=== PATIENT | female | born 1945 | race Caucasian/White ===

== ENCOUNTER → 2019-08-12 | Outpatient (CLI) | payer MEDICARE, BC ==
--- NOTE | 2019-08-12 15:55 | RAD ---
US PELVIS W/TV History: Pelvic pain Comparison: None. Findings: Multiple transabdominal sonographic images of the pelvis are submitted. Pelvic structures are not well seen. Transvaginal ultrasound: Multiple transvaginal sonographic images of the pelvis are submitted. Exam is limited due to patient's body habitus. There is some heterogeneity of the uterine parenchyma. There is a somewhat heterogeneous, hypoechoic mass of the posterior uterus in the myometrium about 1.6 x 1.2 x 2 cm, internal vascularity on color Doppler imaging. There is small cyst of the posterior uterus in the myometrium up to 0.6 x 0.4 x 0.5 cm. Uterus is estimated about 5 x 3.3 x 4.2 cm in size, endometrium not well visualized. Neither ovary could be visualized. No significant free fluid is demonstrated. Impression: 1. Exam is limited due to the patient's body habitus. Neither ovary could be visualized. There is nonspecific heterogeneity of the uterus, endometrium not seen for accurate evaluation. There is more discrete, posterior uterine mass most likely a fibroid. There is a separate small cyst in the posterior uterine myometrium. Electronically signed by: Rolo Salmeron MD (08/12/2019 3:52 PM) [id number]
--- NOTE | 2019-08-13 14:51 | RAD ---
History: Routine Screening. Technique: Bilateral digital mammographic routine views were obtained with 2-D and 3-D technique including use of CAD - computer aided detection. Comparison: 04/08/2018. Findings: Breast Tissue Density A : The breast tissue is predominately fatty replaced. There are no suspicious masses, microcalcifications or areas of architectural distortion. Impression: Negative mammogram. BI-RADS Category 1: Negative. Normal interval followup. . A mammogram does not have 100% sensitivity and therefore a negative imaging study should not delay further work up of a suspicious abnormality. The patient will receive a letter with the results in the mail. Patient information is entered into the reminder system with a target due date for the next screening mammogram. The patient will receive a reminder. "Our facility is accredited by the [employer] Mammography [employer]." BI-RADS 1 -- negative findings (within normal)
== END | disposition home or self-care (01) ==
LOC: US 12:25
PROVIDERS: ATTEND Obstetrics & Gynecology
DX: Z12.31 Encounter for screening mammogram for malignant neoplasm of breast (principal); Z01.419 Encounter for gynecological examination (general) (routine) without abnormal findings; N85.8 Other specified noninflammatory disorders of uterus
CPT/HCPCS: 76830; 76856; 77067

== ENCOUNTER → 2020-08-23 | Outpatient (CLI) | payer MEDICARE, BC ==
--- NOTE | 2020-08-30 09:06 | RAD ---
DATE: 08/23/2020 3:44 PM EXAM: DIGITAL SCREEN BILAT W/CAD HISTORY: Screening COMPARISON: 08/12/2019 Bilateral full field craniocaudal and mediolateral oblique images were obtained using digital technique. This study was interpreted with the benefit of Computerized Aided Detection (CAD). FINDINGS: Breast Density: FATTY The Breast Parenchyma is primarily fatty replaced. Breast parenchyma level density A. No suspicious masses, microcalcifications or architectural distortion is present to suggest malignancy in either breast. The visualized axillae are unremarkable. IMPRESSION: No mammographic evidence of malignancy. BI-RADS CATEGORY: 1 NEGATIVE RECOMMENDED FOLLOW-UP: 12M 12 MONTH FOLLOW-UP Annual screening mammography is recommended, unless clinically indicated sooner based on symptoms or change in physical exam. PQRS compliance statement: Patient information was entered into a reminder system with a target due date for the next mammogram. Mammography is a sensitive method for finding small breast cancers, but it does not detect them all and is not a substitute for careful clinical examination. A negative mammogram does not negate a clinically suspicious finding and should not result in delay in biopsying a clinically suspicious abnormality. "Our facility is accredited by the [employer] Mammography Program."
== END ==
LOC: MAMMO 14:48
PROVIDERS: ATTEND Specialist
DX: Z12.31 Encounter for screening mammogram for malignant neoplasm of breast (principal)
CPT/HCPCS: 77067

== ENCOUNTER → 2020-12-21 | Day surgery (SDC) | payer MEDICARE, BC ==
[~2020-12-21] MED LIST: ALBU2.5V14 NEB; AMLO-186 PO; ASPI-630 PO; BUPR100T7 PO; CARV3.12 PO; COLE625T12 PO; CYCL-331 PO; DICL20GE TP; DULO60CA6 PO; FLUT1DIS3 IH; FURO-69 PO; GABA-586 PO; HYDR-2767 PO; LEVO125T PO; MAGN400O7 PO; METF500T16 PO; METO2.5T PO; PANT40TA3 PO; SERT100T PO; SIMV20TA PO; SUCR1TAB35 PO; TIOT18CA IH; TOLT2CAP PO
[2020-12-21 12:51] VITALS: BP 158/99
== END | disposition home or self-care (01) ==
LOC: SURG 12:36
PROVIDERS: ATTEND Anesthesiology
DX: M54.5 Low back pain (principal); E78.5 Hyperlipidemia, unspecified; J44.9 Chronic obstructive pulmonary disease, unspecified; I10 Essential (primary) hypertension; M06.9 Rheumatoid arthritis, unspecified; E11.9 Type 2 diabetes mellitus without complications; G47.30 Sleep apnea, unspecified; M47.816 Spondylosis without myelopathy or radiculopathy, lumbar region; M47.812 Spondylosis without myelopathy or radiculopathy, cervical region; M79.10 Myalgia, unspecified site; E66.01 Morbid (severe) obesity due to excess calories; Z90.49 Acquired absence of other specified parts of digestive tract; Z96.651 Presence of right artificial knee joint; Z98.890 Other specified postprocedural states; Z79.899 Other long term (current) drug therapy; Z79.82 Long term (current) use of aspirin
CPT/HCPCS: 99204; G0463

== ENCOUNTER 2021-01-21 14:16 | Emergency (ER) | payer MEDICARE, BC ==
[~2021-01-21] VITALS: Ht 162.6 cm; Wt 144.5 kg
[2021-01-21] MEDS ORDERED: IV NORMAL SALINE 1,000ML 1,000 ML IV ONE (14:45)
[2021-01-21] MEDS ORDERED: MORPHINE SULFATE 4 MG/ML DISP.SYRIN. IV ONE (14:45)
[2021-01-21] MEDS ORDERED: ONDANSETRON PF 4 MG/2 ML VIAL. IVP ONE (14:45)
[2021-01-21] MEDS ORDERED: IOHEXOL 300 MG/ML 75 ML VIAL. IV ONE (14:45)
--- NOTE | 2021-01-21 14:49 | PHYS DOC ---
Past History Additional Past Medical Histor: gastroparesis Past Surgical History: Appendectomy, Cholecystectomy, Other Additional Past Surgical Histo: T&A; abd hernia with mesh; total knee; ankle/foot fx repair w/ plates Alcohol Use: None General Adult EDM: Chief Complaint: GI PROBLEM HPI: HPI: 75-year-old female presents with sudden onset epigastric pain. The patient was cleaning her house earlier today when she started to have the discomfort. It has increased significantly and now she rates it a 9 out of 10. It is a cramping sensation in the epigastrium and right upper quadrant. Patient had some kind of a botched gallbladder surgery decades ago. She was supposed to have an ERCP over a year ago but never got to go because of Covid. Patient had vomiting at night 2 days ago but none today. She has had a lot of flatulence but no diarrhea. On arrival she has a temperature 100.4. Review of Systems: Review of Systems: Constitutional: Denies fever or chills Eyes: Denies change in visual acuity HENT: Denies nasal congestion or sore throat Respiratory: Denies cough or shortness of breath Cardiovascular: Denies chest pain or edema GI: Epigastric abdominal pain. Denies nausea, vomiting, bloody stools or diarrhea : Denies dysuria Musculoskeletal: Denies back pain or joint pain Integument: Denies rash Neurologic: Denies headache, focal weakness or sensory changes Endocrine: Denies polyuria or polydipsia Lymphatic: Denies swollen glands Psychiatric: Denies depression or anxiety Current Medications: Current Meds: Current Medications Medications (Trade) Dose Ordered Sig/Johan Start Time Stop Time Status Last Admin Dose Admin Iohexol (Omnipaque 300 Mg/ml) 75 ml 1X ONCE 01/21/21 14:45 01/21/21 14:46 UNV Morphine Sulfate (Morphine 4mg Syringe) 4 mg 1X ONCE 01/21/21 14:45 01/21/21 14:46 UNV Ondansetron HCl (Zofran) 4 mg 1X ONCE 01/21/21 14:45 01/21/21 14:46 UNV Sodium Chloride 1,000 ml @ 1,000 mls/hr 1X ONCE 01/21/21 14:45 01/21/21 15:44 UNV Allergies: Allergies: Allergies Coded Allergies Type Severity Reaction Last Updated Verified [id number] Reductase Inhibitor Allergy Unknown 12/21/20 Yes Sulfa (Sulfonamide Antibiotics) Allergy Unknown 12/21/20 Yes adhesive tape Allergy Unknown 12/21/20 Yes allopurinol Allergy Unknown 12/21/20 Yes atorvastatin Allergy Unknown 12/21/20 Yes epinephrine Allergy Unknown 01/21/21 Yes ezetimibe Allergy Unknown 01/21/21 Yes metoclopramide Allergy Unknown 01/21/21 Yes rosuvastatin Allergy Unknown 01/21/21 Yes simvastatin Allergy Unknown 01/21/21 Yes Physical Exam: PE: Constitutional: Well developed, well nourished, morbidly obese, mild acute distress, non-toxic appearance. [] HENT: Normocephalic, atraumatic, bilateral external ears normal, oropharynx moist, no oral exudates, nose normal. [] Eyes: PERRLA, EOMI, conjunctiva normal, no discharge. [] Neck: Normal range of motion, no tenderness, supple, no stridor. [] Cardiovascular: Heart rate regular rhythm, no murmur [] Lungs & Thorax: Bilateral breath sounds clear to auscultation [] Abdomen: Bowel sounds normal, soft, epigastric and right upper quadrant tenderness, no masses, no pulsatile masses. [] Skin: Warm, dry, no erythema, no rash. [] Back: No tenderness, no CVA tenderness. [] Extremities: No tenderness, no cyanosis, no clubbing, ROM intact, no edema. [] Neurologic: Alert and oriented X 3, normal motor function, normal sensory function, no focal deficits noted. [] Psychologic: Affect normal, judgement normal, mood normal. [] Current Patient Data: Vital Signs: Vital Signs Date Time Temp Pulse Resp B/P (MAP) Pulse Ox O2 Delivery O2 Flow Rate FiO2 01/21/21 14:24 100.4 90 20 131/56 98 Nasal Cannula 3.0 EKG: EKG: Sinus rhythm, rate 81, normal axis, no ST elevation or depression. [] Radiology/Procedures: Radiology/Procedures: [] Impressions: Exam: CT abdomen and pelvis with contrast INDICATION: Abdominal pain TECHNIQUE: Sequential axial images through the abdomen and pelvis obtained following the administration of 75 mL of Isovue-370 IV contrast. Sagittal and coronal reformatted images were reconstructed from the axial data and reviewed. Exposure: One or more of the following in the visualized dose reduction techniques were utilized for this examination: 1. Automated exposure control 2. Adjustment of the MA and/or KV according to patient size 3. Use of iterative of reconstructive technique Comparisons: None FINDINGS: Heart size is normal. No pericardial effusion. Linear bandlike opacity at lung bases. No pleural effusion. There is mild intrahepatic biliary ductal dilatation. Spleen, pancreas and adrenals are unremarkable. Gallbladder surgically absent. No perinephric inflammation or hydronephrosis. No renal or ureteral calculi are identified. Bladder is partially distended and appears thin-walled. Small amount of air noted within the bladder. Uterus is not enlarged. No abnormal adnexal mass. Large and small bowel are unremarkable. Appendix is nonidentified. No free intra-abdominal air or fluid. No obstruction. Abdominal aorta has a normal course and caliber. Abdominal vasculature is patent. No enlarged intra-abdominal lymph nodes are identified. No suspicious osseous lesions or acute fractures. IMPRESSION: 1. Mild intrahepatic biliary ductal dilatation. Correlate with LFTs and for recent ERCP. 2. Small focus of air noted within the bladder. Correlate for recent instrumentation. Urinalysis for infection. Electronically signed by: Teja Webb MD (01/21/2021 4:41 PM) [facility] DICTATED AND SIGNED BY: TEJA WEBB MD DATE: 01/21/21 1634 CC: RODRIGO CARRILLO DO; MEHUL CALDERON MD ~MTH0 0 XR CHEST 1V INDICATION: fever . COMPARISON STUDY: None. FINDINGS: Lungs: Normal lung volume. Left basilar linear opacity. The tracheobronchial tree and hilar structures are normal. Pleura: No pleural effusion or pneumothorax. Heart and Mediastinum: The cardiomediastinal silhouette is normal. The great vessels of the thorax are normal. IMPRESSION: Left basilar linear opacities, probably subsegmental atelectasis. Electronically signed by: Zaira Toledo MD (01/21/2021 4:45 PM) [facility] DICTATED AND SIGNED BY: ZAIRA TOLEDO MD DATE: 01/21/21 1644 CC: RODRIGO CARRILLO DO; MEHUL CALDERON MD ~MTH0 0 Heart Score: C/O Chest Pain: No Risk Factors: Risk Factors: DM, Current or recent (<one month) smoker, HTN, HLP, family history of CAD, obesity. Risk Scores: Score 0 - 3: 2.5% MACE over next 6 weeks - Discharge Home Score 4 - 6: 20.3% MACE over next 6 weeks - Admit for Clinical Observation Score 7 - 10: 72.7% MACE over next 6 weeks - Early Invasive Strategies Course & Med Decision Making: Course & Med Decision Making Pertinent Labs and Imaging studies reviewed. (See chart for details) The patient has a white count 1.7. With a left shift. Her ANC is normal. Her liver enzymes are mildly elevated. Bilirubin is 2.1. Patient was in quite a b it of pain on arrival. I gave her 4 mg of morphine and a milligram of Dilaudid. This is in addition to the 100 mcg of fentanyl by EMS. Chest x-ray showed linear opacities likely atelectasis. See official report for more details. The CT of the abdomen and pelvis shows dilated intrahepatic biliary duct system. Gallbladder is absent. See official report for more details. As reviewed the patient's information I realize she was borderline fever on arrival and with a suppressed white count and concerned about sepsis. Source could be cholangitis. The x-ray was not suggestive of pneumonia. Her urinalysis shows small leukocyte esterase but few bacteria. On reexamination she is now more obviously wheezing I will treat her with Decadron, albuterol inhaler and perform a CTA of the chest. The patient will also be tested for COVID-19. The patient and her family would prefer that she be transferred to [facility] for admission. We will start that process. The patient needed additional oxygen and her respiratory rate increased. ABG showed her to be acidotic with CO2 retention. We will place her on BiPAP. Transfer is pending. I am signing the patient out to Dr. Shay at 1800. [] Opal Disclaimer: Opal Disclaimer: This electronic medical record was generated, in whole or in part, using a voice recognition dictation system. Departure Departure: Impression: Primary Impression: Sepsis Qualified Codes: A41.9 - Sepsis, unspecified organism Additional Impressions: Elevated liver enzymes Decreased white blood cell count COPD exacerbation Disposition: 02 SHORT TERM HOSPITAL Condition: GUARDED Referrals: MEHUL CALDERON MD (PCP) Sepsis Assessment: Date and Time of Assessment Date: Jan 21, 2021 Time: 16:32 Vital Signs Vital Signs Vital Signs Date Time Temp Pulse Resp B/P (MAP) Pulse Ox O2 Delivery O2 Flow Rate FiO2 01/21/21 16:30 84 20 155/76 (102) 88 Nasal Cannula 3.0 01/21/21 14:24 100.4 Respirations Respiratory Effort: Normal, Shortness of air Respiratory Pattern: Tachypnea Cardiovascular Pulse Rhythm: Regular HEART: Nml rate, reg. rhythm Lung Sounds Breath Sounds: Wheezes Capillary Refill Capillary Refill: Rt Hand < 3 seconds Peripheral Pulse Pulse Location: Monitor Pulse Strength: Normal (2+) Pulse Assessment Method: Monitor Integumentary Skin: Warm Skin Moisture: Dry Skin Turgor: Normal Skin Color: no erythema Fingernail Color: WNL Sepsis Assessment: Date and Time of Assessment Date: Jan 21, 2021 Time: 17:33 Vital Signs Vital Signs Vital Signs Date Time Temp Pulse Resp B/P (MAP) Pulse Ox O2 Delivery O2 Flow Rate FiO2 01/21/21 16:30 84 20 155/76 (102) 88 Nasal Cannula 3.0 01/21/21 14:24 100.4 Respirations Respiratory Effort: Normal Respiratory Pattern: Tachypnea Cardiovascular Pulse Rhythm: Regular HEART: Nml rate, reg. rhythm Lung Sounds Breath Sounds: Wheezes Capillary Refill Capillary Refill: Rt Hand < 3 seconds Peripheral Pulse Pulse Location: Monitor Pulse Strength: Normal (2+) Pulse Assessment Method: Monitor Integumentary Skin: Warm Skin Moisture: Dry Skin Turgor: Normal Skin Color: warm Fingernail Color: WNL RODRIGO CARRILLO DO Jan 21, 2021 14:49
[2021-01-21] MEDS ORDERED: CONTRAST GIVEN. MC PRN ×2 (15:00→17:45)
[2021-01-21] MEDS ORDERED: HYDROmorphone PF 1 MG/ML DISP.SYRIN IVP ONE (15:30)
[2021-01-21 15:34] LABS: BASO % 1 % (0-3); EOS % 1 % (0-3); HEMATOCRIT 39.1 % (36.0-47.0); HEMOGLOBIN 12.9 g/dL (12.0-15.5); LYMPH # 0.1 x10^3/uL (1.0-4.8); LYMPH % 5 % (24-48); MEAN CORPUSCULAR HEMOGLOBIN 31 pg (25-35); MEAN CORPUSCULAR HGB CONC 33 g/dL (31-37); MEAN CORPUSCULAR VOLUME 95 fL (79-100); MONO % 1 % (0-9); NEUT # 1.6 x10^3uL (1.8-7.7); NEUT % 93 % (31-73); PLATELET COUNT 141 x10^3/uL (140-400); RED CELL DISTRIBUTION WIDTH 14.9 % (11.5-14.5)
[2021-01-21 15:40] LABS: ALBUMIN 3.7 g/dL (3.4-5.0); CALCIUM 8.6 mg/dL (8.5-10.1); CREATININE 0.9 mg/dL (0.6-1.0); GFR 61.2; POTASSIUM 4.1 mmol/L (3.5-5.1); TOTAL BILIRUBIN 2.1 mg/dL (0.2-1.0); TOTAL PROTEIN 7.4 g/dL (6.4-8.2)
--- NOTE | 2021-01-21 15:57 | EKG ---
[address] [address] Test Date: 2021-01-21 Test Time: 14:52:38 Pat Name: AKILA WING Department: Room: Gender: F Casino Host: ALTON : 1945 Requested By: RODRIGO CARRILLO Order Number: [id number] Reading MD: Measurements Intervals [place] Rate: 81 P: -26 VT: 146 QRS: 22 QRSD: 88 T: 39 QT: 338 QTc: 398 Interpretive Statements SINUS RHYTHM OTHERWISE NORMAL ECG RI6.02 No previous ECG available for comparison
[2021-01-21 16:07] LABS: BACTERIA,URINE FEW /HPF (0-FEW); BILIRUBIN,URINE NEG (NEG); CLARITY,URINE CLOUDY; COLOR,URINE YELLOW; GLUCOSE,URINE NEG (NEG); NITRITE,URINE NEG (NEG); RBC,URINE RARE /HPF (0-2); SQUAMOUS EPITHELIAL CELL,UR OCC /LPF; UROBILINOGEN,URINE 0.2 mg/dL (0.2 mg/dL)
[2021-01-21 16:32] LABS: % BANDS 42 % (0-9); % BASOS 0 % (0-3); % EOS 0 % (0-5); % LYMPHS 8 % (24-48); % METAS 4 % (0-0); % MONOS 0 % (0-10); % MYELOS 0 % (0-0); % PROS 1 % (0-0); % SEGS 44 % (35-66)
[2021-01-21 16:33] LABS: PLT ESTIMATE DECREASED (ADEQUATE); STOMATOCYTES FEW
--- NOTE | 2021-01-21 16:43 | RAD ---
Exam: CT abdomen and pelvis with contrast INDICATION: Abdominal pain TECHNIQUE: Sequential axial images through the abdomen and pelvis obtained following the administrati on of 75 mL of Isovue-370 IV contrast. Sagittal and coronal reformatted images were reconstructed fro m the axial data and reviewed. Exposure: One or more of the following in the visualized dose reduction techniques were utilized for this examination: 1. Automated exposure control 2. Adjustment of the MA and/or KV according to patient size 3. Use of iterative of reconstructive technique Comparisons: None FINDINGS: Heart size is normal. No pericardial effusion. Linear bandlike opacity at lung bases. No pleural effu rafiq. There is mild intrahepatic biliary ductal dilatation. Spleen, pancreas and adrenals are unremarkable. Gallbladder surgically absent. No perinephric inflammation or hydronephrosis. No renal or ureteral calculi are identified. Bladder is partially distended and appears thin-walled. Small amount of air noted within the bladder. Uterus is not enlarged. No abnormal adnexal mass. Large and small bowel are unremarkable. Appendix is nonidentified. No free intra-abdominal air or flu id. No obstruction. Abdominal aorta has a normal course and caliber. Abdominal vasculature is patent. No enlarged intra-abdominal lymph nodes are identified. No suspicious osseous lesions or acute fractures. IMPRESSION: 1. Mild intrahepatic biliary ductal dilatation. Correlate with LFTs and for recent ERCP. 2. Small focus of air noted within the bladder. Correlate for recent instrumentation. Urinalysis for infection. Electronically signed by: Teja Hancock MD (01/21/2021 4:41 PM) [facility]
--- NOTE | 2021-01-21 16:48 | RAD ---
XR CHEST 1V INDICATION: fever . COMPARISON STUDY: None. FINDINGS: Lungs: Normal lung volume. Left basilar linear opacity. The tracheobronchial tree and hilar structure s are normal. Pleura: No pleural effusion or pneumothorax. Heart and Mediastinum: The cardiomediastinal silhouette is normal. The great vessels of the thorax ar e normal. IMPRESSION: Left basilar linear opacities, probably subsegmental atelectasis. Electronically signed by: Rolo Toledo MD (01/21/2021 4:45 PM) [facility]
[2021-01-21] MEDS ORDERED: PIPERACILLIN/TAZOBACTAM 3.375 GM in IV NORMAL SALINE 50ML 50 ML IV ONE (17:15)
[2021-01-21] MEDS ORDERED: ALBUTEROL SULFATE 8GM INHALER. INH ONE (17:15)
[2021-01-21] MEDS ORDERED: DEXAMETHASONE SOD PHOS 10 MG/ML VIAL. IV ONE (17:15)
[2021-01-21 17:36] LABS: BGAS PH 7.21 (7.35-7.45)
[2021-01-21] MEDS ORDERED: IOHEXOL 350 MG/ML 100 ML VIAL. IV ONE (17:45)
[2021-01-21] MEDS ORDERED: IV NORMAL SALINE 1,000ML 1,000 ML IV SCH (17:45)
[2021-01-21] MEDS ORDERED: IV NORMAL SALINE 50ML 50 ML ONE (17:54)
[2021-01-21] MEDS ORDERED: PIPERACILLIN/TAZOBACTAM 3.375 GM VIAL IV ONE (17:54)
[2021-01-21] MEDS ORDERED: VANCOMYCIN 1.5 GM in IV NORMAL SALINE 500ML 500 ML IV ONE (18:30)
[2021-01-21 19:50] VITALS: BP 94/38
[2021-01-21] MEDS ORDERED: VANCOMYCIN 1 GM VIAL. ONE ×2 (20:02)
[2021-01-21] MEDS ORDERED: IV NORMAL SALINE 500ML 500 ML ONE (20:02)
[2021-01-21 20:14] LABS: BGAS PH 7.25 (7.35-7.45)
[2021-01-21] MEDS ORDERED: IV RINGERS SOLUTION,LACTATED 1,000 ML IV ONE (20:15)
[2021-01-21] MEDS ORDERED: NOREPINEPHRINE BITARTRATE 8 MG in IV DEXTROSE 5% 250 ML IV PRN (20:15)
--- NOTE | 2021-01-21 20:36 | RAD ---
XR CHEST 1V Clinical History: Reason: do sitting - central line placement / Spl. Instructions: / History: Technique: AP view of the chest was obtained at 01/21/2021 7:17 PM. Comparison: 4:15 PM. Findings: There has been been interval placement of a right subclavian line with its tip directed downward in t he high SVC. The cardiomediastinal silhouette is normal. The pulmonary vasculature is normal. There is patchy opac ity in the lower lungs. Impression: 1. Right subclavian line is likely adequately positioned. There is no pneumothorax. 2. Mild bilateral pulmonary infiltrates appear worse. Electronically signed by: Vlad Card III, MD (01/21/2021 8:34 PM) [facility]
[2021-01-21] MEDS ORDERED: ACETAMINOPHEN 650 MG SUPP.RECT. PR ONE (22:00)
[2021-01-21] MEDS ORDERED: SODIUM BICARB ADULT 8.4% 50 MEQ/50 ML DISP.SYRIN. IV ONE (22:00)
[2021-01-27 10:52] LABS: WHITE BLOOD COUNT 1.7 x10^3/uL (4.0-11.0)
== END 2021-01-22 00:20 | disposition short-term general hospital (02) ==
LOC: ER 14:16
DX: A41.9 Sepsis, unspecified organism (principal); R65.20 Severe sepsis without septic shock; J96.02 Acute respiratory failure with hypercapnia; J96.01 Acute respiratory failure with hypoxia; R74.8 Abnormal levels of other serum enzymes; D72.819 Decreased white blood cell count, unspecified; J44.1 Chronic obstructive pulmonary disease with (acute) exacerbation; R79.89 Other specified abnormal findings of blood chemistry; E87.2 Acidosis; D64.9 Anemia, unspecified; Z20.822 Contact with and (suspected) exposure to COVID-19; Z90.49 Acquired absence of other specified parts of digestive tract; Z90.89 Acquired absence of other organs; Z88.8 Allergy status to other drugs, medicaments and biological substances; Z88.2 Allergy status to sulfonamides
CPT/HCPCS: 36415; 36556; 36600; 71045; 74177; 80053; 81001; 82803; 83690; 83880; 84484; 85007; 85025; 87040; 87086; 87426; 93005; 94660; 96361; 96365; 96366; 96367; 96374; 96375; 99291; 99292; C9803; J1100; J1170; J2060; J2270; J2405; J2543; J3370; J7030; J7040; J7120; Q9967; U0003; 99285-25